=== PATIENT | female | born 1995 | race Caucasian/White ===

== ENCOUNTER 2020-05-05 09:47 | Emergency (ER) | payer OTHER ==
[~2020-05-05] VITALS: Ht 167.6 cm; Wt 56.7 kg
[2020-05-05 10:03] VITALS: BP 138/87
== END 2020-05-05 10:49 | disposition home or self-care (01) ==
LOC: ER 09:47
DX: J02.9 Acute pharyngitis, unspecified (principal); Z20.828 Contact with and (suspected) exposure to other viral communicable diseases
CPT/HCPCS: 99283; U0003; C9803-CS

== ENCOUNTER 2020-11-01 21:20 | Emergency (ER) | payer OTHER ==
[~2020-11-01] VITALS: Ht 167.6 cm; Wt 56.7 kg
[2020-11-01 21:27] VITALS: BP 124/62
--- NOTE | 2020-11-02 22:43 | NUR ---
LAB CALLED REGARDING NEGATIVE COVID RESULT
== END 2020-11-01 22:02 | disposition home or self-care (01) ==
LOC: ER 21:26
DX: Z20.828 Contact with and (suspected) exposure to other viral communicable diseases (principal)
CPT/HCPCS: 99283; C9803; U0003

== ENCOUNTER 2025-04-03 23:26 | Emergency (ER) | payer BC, OTHER ==
[~2025-04-03] VITALS: Ht 167.6 cm; Wt 74.8 kg
[2025-04-03] MEDS: IV NS 0.9% 1,000 ML BAG IV ONE (23:30)
[2025-04-03] MEDS ORDERED: ACETAMINOPHEN 325 MG TABLET ONE (23:43)
[2025-04-03 23:48] LABS: BASOPHILS % (AUTO) 0.4 % (0.0-2.0); EOSINOPHILS # (AUTO) 0.1 K/uL (0.0-0.7); EOSINOPHILS % (AUTO) 0.8 % (0.0-6.0); HEMATOCRIT 39 % (33-45); HEMOGLOBIN 13.6 g/dL (11.5-14.8); LYMPHOCYTES # (AUTO) 2.4 K/uL (0.8-4.8); LYMPHOCYTES % (AUTO) 22.2 % (20.0-44.0); MEAN CORPUSCULAR HEMOGLOBIN 31 PG (26.0-33.0); MEAN CORPUSCULAR HGB CONC 35 g/dl (31.0-36.0); MEAN CORPUSCULAR VOLUME 89 fL (82-100); MONOCYTES % (AUTO) 9.1 % (2.0-12.0); NEUTROPHILS # (AUTO) 7.3 K/uL (1.8-8.9); NEUTROPHILS % (AUTO) 67.5 % (43.0-81.0); PLATELET COUNT (AUTO) 190 K/uL (150-450); RED BLOOD CELL COUNT(AUTO) 4.41 MIL/uL (4.0-5.2); RED CELL DISTRIBUTION WIDTH 13.1 % (11.5-15.0); WHITE BLOOD COUNT (AUTO) 10.9 K/uL (4.3-11.0)
[2025-04-03 23:54] LABS: APPEARANCE,URINE CLEAR (CLEAR); BILIRUBIN,URINE NEGATIVE (NEGATIVE); BLOOD, URINE NEGATIVE Ery/uL (NEGATIVE); COLOR,URINE YELLOW (YELLOW); KETONES,URINE NEGATIVE (NEGATIVE); LEUKOCYTE ESTERASE ,URINE 1+ (NEGATIVE); NITRITE, URINE NEGATIVE (NEGATIVE); PROTEIN,URINE NEGATIVE (NEGATIVE); UGLUCOSE NEGATIVE (NEGATIVE); UROBILINOGEN,URINE 0.2 EU/dL (0.2)
[2025-04-03 23:55] LABS: CREATININE 0.7 mg/dL (0.6-1.3); POTASSIUM 3.8 mmol/L (3.5-5.1)
[2025-04-04] MEDS: ACETAMINOPHEN 325 MG TABLET PO ONE (00:08)
[2025-04-04 00:25] LABS: BILIRUBIN,DIRECT 0.1 mg/dL (0.0-0.2); BILIRUBIN,TOTAL 0.4 mg/dL (0.2-1.0); TOTAL PROTEIN, SERUM 7.4 g/dL (6.4-8.2)
[2025-04-04 00:47] LABS: BACTERIA,URINE Many /HPF (None Seen)
[2025-04-04 00:48] LABS: ADD URINE CULTURE YES; RBC,URINE 0-2 /HPF (0-2); SQUAMOUS EPITHELIAL CELL,UR Many /HPF (None Seen)
[2025-04-04] MEDS ORDERED: NITROFURANTOIN/MONOHYDRATE MACROCRYSTALS 100 MG CAPSULE ONE (01:33)
[2025-04-04] MEDS ORDERED: NITR100C6 PO (01:33)
[2025-04-04] MEDS: NITROFURANTOIN/MONOHYDRATE MACROCRYSTALS 100 MG CAPSULE PO ONE (01:34)
[2025-04-04 01:35] VITALS: BP 118/82; TEMP 97.8; O2SAT 98
== END 2025-04-04 03:38 | disposition home or self-care (01) ==
LOC: ER 23:35
DX: O23.43 Unspecified infection of urinary tract in pregnancy, third trimester (principal); O36.8130 Decreased fetal movements, third trimester, not applicable or unspecified; R10.2 Pelvic and perineal pain; Z3A.37 37 weeks gestation of pregnancy
CPT/HCPCS: 99284; 96360; 85025; 80048; 80076; 81001; 36415; 84702; 76856; 87086; J7030